=== PATIENT | female | born 1975 | race African-American/Black ===

== ENCOUNTER 2017-03-19 10:10 | Emergency (ER) | payer BC ==
[2017-03-19] MEDS ORDERED: ONDANSETRON 4 MG TAB.RAPDIS PO ONE (10:25)
[2017-03-19] MEDS ORDERED: NORMAL SALINE 1000 ML 1,000 ML IV ONE (10:25)
--- NOTE | 2017-03-19 10:26 | ER Document Report ---
ED Medical Screen (RME) - General Chief Complaint: Nausea/Vomiting Stated Complaint: NAUSEA/VOMITING Time Seen by Provider: 03/19/17 10:22 Notes: 41-year-old female with past medical history as recorded including congestive heart failure 1997 that was -induced. Patient has had no heart failure symptoms or medications since that time. Patient resents today with simply nausea without abdominal pain, fevers, dysuria, or diarrhea starting around 48 hours ago. She does states she feels a little "lightheaded". She denies any chest pain, leg swelling, or shortness of breath. On examination the patient has no tenderness to deep palpation of all 4 quadrants of the abdomen. has no flank pain or tenderness. Heart and lung exam is unremarkable. TRAVEL OUTSIDE OF THE [place] IN LAST 30 DAYS: No - Related Data Allergies/Adverse Reactions: acetaminophen [From Percocet] Allergy (Severe, Verified 03/19/17 10:11) RASH doxycycline [Doxycycline] Allergy (Severe, Verified 03/19/17 10:11) rash & vomiting oxycodone HCl [From Percocet] Allergy (Severe, Verified 03/19/17 10:11) RASH Past Medical History - Past Medical History Cardiac Medical History: Reports: Hx Congestive Heart Failure Denies: Hx Coronary Artery Disease, Hx Heart Attack, Hx Hypertension Pulmonary Medical History: Reports: Hx Asthma, Hx Bronchitis, Hx Pneumonia Denies: Hx COPD Neurological Medical History: Reports: Hx Migraine. Denies: Hx Cerebrovascular Accident, Hx Seizures Renal/ Medical History: Denies: Hx Peritoneal Dialysis Malignancy Medical History: Reports: Hx Breast Cancer - Right Musculoskeltal Medical History: Denies Hx Arthritis Past Surgical History: Reports: Hx Lumpectomy - R breast, Hx Tubal Ligation - Immunizations Hx Diphtheria, Pertussis, Tetanus Vaccination: Yes Physical Exam - Vital signs Vitals: Temp Pulse Resp BP Pulse Ox 97.4 F 50 L 20 98/62 L 100 03/19/17 10:16 03/19/17 10:03/19/17 10:03/19/17 10:03/19/17 10:16 Course - Vital Signs Vital signs: Temp Pulse Resp BP Pulse Ox 97.4 F 50 L 20 98/62 L 100 03/19/17 10:16 03/19/17 10:16 03/19/17 10:16 03/19/17 10:16 03/19/17 10:16
[2017-03-19 10:56] LABS: ABSOLUTE BASOPHILS # (AUTO) 0.1 10^3/uL (0.0-0.2); ABSOLUTE EOSINOPHILS # (AUTO) 0.1 10^3/uL (0.0-0.6); ABSOLUTE LYMPHOCYTES (AUTO) 2.5 10^3/uL (0.5-4.7); ABSOLUTE MONOCYTES (AUTO) 0.4 10^3/uL (0.1-1.4); ABSOLUTE NEUT (AUTO) 2.5 10^3/uL (1.7-8.2); BASOPHILS % (AUTO) 2.2 % (0-2); EOSINOPHILS % (AUTO) 1.9 % (0-6); HEMATOCRIT 37.9 % (36.0-47.0); HEMOGLOBIN 12.5 g/dL (12.0-15.5); HGB HCT DIFFERENCE -0.4; LYMPHOCYTES % (AUTO) 43.8 % (13-45); MEAN CORPUSCULAR HEMOGLOBIN 31.4 pg (27.0-33.4); MEAN CORPUSCULAR HGB CONC 33.1 g/dL (32.0-36.0); MEAN CORPUSCULAR VOLUME 95 fl (80-97); MONOCYTES % (AUTO) 7.2 % (3-13); RED BLOOD COUNT 3.98 10^6/uL (3.72-5.28); RED CELL DISTRIBUTION WIDTH 14.3 % (11.5-14.0); SEGMENTED NEUTROPHILS % (AUTO) 44.9 % (42-78); WHITE BLOOD COUNT 5.6 10^3/uL (4.0-10.5)
[2017-03-19] MEDS ORDERED: MECLIZINE HCL 25 MG TABLET PO ONE (11:00)
--- NOTE | 2017-03-19 11:00 | ER Document Report ---
ED General - General Chief Complaint: Nausea/Vomiting Stated Complaint: NAUSEA/VOMITING Time Seen by Provider: 03/19/17 10:22 Mode of Arrival: Ambulatory Information source: Patient Notes: 41-year-old female presents with complaints of dizziness when she stands. Patient denies any chest pain shortness breath difficult to breathing abdominal pain. Patient notes no other complaints TRAVEL OUTSIDE OF THE [place] IN LAST 30 DAYS: No - HPI Onset: Other - Three-day duration Onset/Duration: Persistent Quality of pain: No pain Severity: Mild Pain Level: Denies Associated symptoms: Other - Dizziness Exacerbated by: Supine, Walking Relieved by: Denies Similar symptoms previously: No Recently seen / treated by doctor: No - Related Data Allergies/Adverse Reactions: acetaminophen [From Percocet] Allergy (Severe, Verified 03/19/17 10:11) RASH doxycycline [Doxycycline] Allergy (Severe, Verified 03/19/17 10:11) rash & vomiting oxycodone HCl [From Percocet] Allergy (Severe, Verified 03/19/17 10:11) RASH Past Medical History - Social History Smoking Status: Never Smoker Cigarette use (# per day): No Chew tobacco use (# tins/day): No Smoking Education Provided: No Family History: Reviewed & Not Pertinent Patient has suicidal ideation: No Patient has homicidal ideation: No - Past Medical History Cardiac Medical History: Reports: Hx Congestive Heart Failure Denies: Hx Coronary Artery Disease, Hx Heart Attack, Hx Hypertension Pulmonary Medical History: Reports: Hx Asthma, Hx Bronchitis, Hx Pneumonia Denies: Hx COPD Neurological Medical History: Reports: Hx Migraine. Denies: Hx Cerebrovascular Accident, Hx Seizures Renal/ Medical History: Denies: Hx Peritoneal Dialysis Malignancy Medical History: Reports: Hx Breast Cancer - Right Musculoskeltal Medical History: Denies Hx Arthritis Past Surgical History: Reports: Hx Lumpectomy - R breast, Hx Tubal Ligation - Immunizations Hx Diphtheria, Pertussis, Tetanus Vaccination: Yes Review of Systems - Review of Systems Notes: PHYSICAL EXAMINATION: GENERAL: Well-appearing, well-nourished and in no acute distress. HEAD: Atraumatic, normocephalic. EYES: Pupils equal round and reactive to light, extraocular movements intact, conjunctiva are normal. ENT: Nares patent, oropharynx clear without exudates. Moist mucous membranes. NECK: Normal range of motion, supple without lymphadenopathy LUNGS: Breath sounds clear to auscultation bilaterally and equal. No wheezes rales or rhonchi. HEART: Regular rate and rhythm without murmurs ABDOMEN: Soft, nontender, nondistended abdomen. No guarding, no rebound. No masses appreciated. Female : deferred Musculoskeletal: Normal range of motion, no pitting or edema. No cyanosis. NEUROLOGICAL: Cranial nerves grossly intact. Normal speech, normal gait. Normal sensory, motor exams PSYCH: Normal mood, normal affect. SKIN: Warm, Dry, normal turgor, no rashes or lesions noted. Physical Exam - Vital signs Vitals: Temp Pulse Resp BP Pulse Ox 97.4 F 50 L 20 98/62 L 100 03/19/17 10:16 03/19/17 10:03/19/17 10:03/19/17 10:03/19/17 10:16 Course - Re-evaluation Re-evalutation: 03/19/17 11:18 Patient notes overall she looks well is in no distress lab work notes no acute abnormality, I believe dizziness is secondary to the heat that she has been working in and has not been hydrating well 03/19/17 13:08 Patient notes symptoms have resolved significantly after Antivert and IV fluids. I will discharge home as she is otherwise stable has no headache no neurological deficits After performing a Medical Screening Examination, I estimate there is LOW risk for ACUTE GLAUCOMA, TEMPORAL ARTERITIS, MENINGITIS, INCRANIAL HEMORRHAGE, or ISCHEMIC STROKE thus I consider the discharge disposition reasonable. I have reevaluated this patient multiple times and no significant life threatening changes are noted. The patient and I have discussed the diagnosis and risks, and we agree with discharging home with close follow-up with the understanding that symptoms and presentations can change. We also discussed returning to the Emergency Department immediately if new or worsening symptoms occur. We have discussed the symptoms which are most concerning (e.g., changing or worsening symptoms, new numbness or weakness, vomiting, fever) that necessitate immediate return. - Vital Signs Vital signs: Temp Pulse Resp BP Pulse Ox 97.4 F 50 L 20 98/62 L 100 03/19/17 10:16 03/19/17 10:16 03/19/17 10:16 03/19/17 10:16 03/19/17 10:16 - Laboratory Result Diagrams: 03/19/17 10:30 03/19/17 10:30 Laboratory results interpreted by me: 03/19/17 03/19/17 10:30 10:30 RDW 14.3 H Basophils % 2.2 H Glucose 118 H Discharge - Discharge Clinical Impression: Dizziness, Orthostatic hypotension Condition: Stable Disposition: HOME, SELF-CARE Instructions: Dizziness ([facility]) Prescriptions: Meclizine HCl [Antivert 25 mg Tablet] 25 mg PO TID PRN #21 tablet PRN Reason: Forms: Return to Work Referrals: EDSON VITALE MD [Primary Care Provider] - Follow up tomorrow
[2017-03-19 11:06] LABS: ALANINE AMINOTRANSFERASE 29 U/L (9-52); ALBUMIN 4.1 g/dL (3.5-5.0); ALKALINE PHOSPHATASE 50 U/L (38-126); ANION GAP 11 (5-19); ASPARTATE AMINO TRANSFERASE 28 U/L (14-36); BILIRUBIN,DIRECT 0.3 mg/dL (0.0-0.4); BILIRUBIN,TOTAL 0.6 mg/dL (0.2-1.3); BLOOD UREA NITROGEN 13 mg/dL (7-20); CALCIUM 9.9 mg/dL (8.4-10.2); CARBON DIOXIDE 26 mmol/L (22-30); CHLORIDE 102 mmol/L (98-107); CREATININE RESULT 0.73 mg/dL (0.52-1.25); GLUCOSE 118 mg/dL (75-110); POTASSIUM 4.6 mmol/L (3.6-5.0); SODIUM 138.5 mmol/L (137-145); TOTAL PROTEIN 7.7 g/dL (6.3-8.2)
[2017-03-19 11:24] LABS: APPEARANCE,URINE SLIGHTLY-CLOUDY; BILIRUBIN,URINE NEGATIVE (NEGATIVE); GLUCOSE, URINE NEGATIVE (NEGATIVE); KETONES,URINE NEGATIVE (NEGATIVE); LEUKOCYTE ESTERASE,URINE NEGATIVE (NEGATIVE); NITRITE,URINE NEGATIVE (NEGATIVE); PROTEIN,URINE NEGATIVE (NEGATIVE); URINE SPECIFIC GRAVITY 1.018; UROBILINOGEN,URINE NEGATIVE mg/dL (<2.0)
[2017-03-19 13:37] VITALS: BP 130/78
== END 2017-03-19 13:31 | disposition home or self-care (01) ==
LOC: ER 10:10
DX: I95.1 Orthostatic hypotension (principal); R42 Dizziness and giddiness; R11.2 Nausea with vomiting, unspecified; R06.02 Shortness of breath
CPT/HCPCS: 99284; 36415; 85025; 81025; 80053; 81001; S0119; J7030

== ENCOUNTER 2017-08-26 14:08 | Emergency (ER) | payer SELFPAY ==
--- NOTE | 2017-08-26 16:10 | ER Document Report ---
ED Medical Screen (RME) - General Chief Complaint: Abdominal Pain Stated Complaint: ABDOMINAL PAIN Time Seen by Provider: 08/26/17 16:09 Notes: Patient reports 1 day of right lower quadrant abdominal pain and some vaginal bleeding. She states she is a week late with her menstrual cycle. She states she has had her tubes tied 17 years ago but had a positive urine test yesterday. This was done at home. She denies any abdominal surgeries. TRAVEL OUTSIDE OF THE [place] IN LAST 30 DAYS: No - Related Data Allergies/Adverse Reactions: acetaminophen [From Percocet] Allergy (Severe, Verified 03/19/17 10:11) RASH doxycycline [Doxycycline] Allergy (Severe, Verified 03/19/17 10:11) rash & vomiting oxycodone HCl [From Percocet] Allergy (Severe, Verified 03/19/17 10:11) RASH Past Medical History - Social History Frequency of alcohol use: None Drug Abuse: None - Past Medical History Cardiac Medical History: Reports: Hx Congestive Heart Failure Denies: Hx Coronary Artery Disease, Hx Heart Attack, Hx Hypertension Pulmonary Medical History: Reports: Hx Asthma, Hx Bronchitis, Hx Pneumonia Denies: Hx COPD Neurological Medical History: Reports: Hx Migraine. Denies: Hx Cerebrovascular Accident, Hx Seizures Renal/ Medical History: Denies: Hx Peritoneal Dialysis Malignancy Medical History: Reports: Hx Breast Cancer - Right Musculoskeltal Medical History: Denies Hx Arthritis Past Surgical History: Reports: Hx Breast Surgery, Hx Gynecologic Surgery, Hx Lumpectomy - R breast, Hx Tubal Ligation - Immunizations Hx Diphtheria, Pertussis, Tetanus Vaccination: Yes Physical Exam - Vital signs Vitals: Temp Pulse Resp BP Pulse Ox 99.0 F 66 16 147/87 H 100 08/26/17 14:20 08/26/17 14:20 08/26/17 14:20 08/26/17 14:20 08/26/17 14:20 Course - Vital Signs Vital signs: Temp Pulse Resp BP Pulse Ox 99.0 F 66 16 147/87 H 100 08/26/17 14:20 08/26/17 14:20 08/26/17 14:20 08/26/17 14:20 08/26/17 14:20
--- NOTE | 2017-08-26 16:49 | ER Document Report ---
ED GI/ - General Mode of Arrival: Ambulatory Information source: Patient TRAVEL OUTSIDE OF THE [place] IN LAST 30 DAYS: No <GREG LEIVA - Last Filed: 08/26/17 16:55> <MENG HINES - Last Filed: 08/26/17 19:26> - General Chief Complaint: Abdominal Pain Stated Complaint: ABDOMINAL PAIN Time Seen by Provider: 08/26/17 16:09 Notes: Patient is a 41 year old female that presents to the emergency department today with complaints of abdominal pain which began a few hours ago. Patient states her LMP was 37 days ago and she is normally very regular. Patient states two days ago she developed nausea and vomiting so she took a test which was faintly positive. Patient had a tubal ligation 17 years ago. Patient states she has had vaginal spotting as well. (GREG LEIVA) - Related Data Allergies/Adverse Reactions: acetaminophen [From Percocet] Allergy (Severe, Verified 03/19/17 10:11) RASH doxycycline [Doxycycline] Allergy (Severe, Verified 03/19/17 10:11) rash & vomiting oxycodone HCl [From Percocet] Allergy (Severe, Verified 03/19/17 10:11) RASH Past Medical History - General Information source: Patient, [facility] Records - Social History Smoking Status: Former Smoker Cigarette use (# per day): No Frequency of alcohol use: None Drug Abuse: None Lives with: Family Family History: Reviewed & Not Pertinent Patient has suicidal ideation: No Patient has homicidal ideation: No - Past Medical History Cardiac Medical History: Reports: Hx Congestive Heart Failure Pulmonary Medical History: Reports: Hx Asthma, Hx Bronchitis, Hx Pneumonia Neurological Medical History: Reports: Hx Migraine Malignancy Medical History: Reports: Hx Breast Cancer - Right Past Surgical History: Reports: Hx Breast Surgery, Hx Gynecologic Surgery, Hx Lumpectomy - R breast, Hx Tubal Ligation - Immunizations Hx Diphtheria, Pertussis, Tetanus Vaccination: Yes <GREG LEIVA - Last Filed: 08/26/17 16:55> Review of Systems - Review of Systems Constitutional: No symptoms reported EENT: No symptoms reported Cardiovascular: No symptoms reported Respiratory: No symptoms reported Gastrointestinal: See HPI, Abdominal pain Genitourinary: No symptoms reported Female Genitourinary: See HPI, Last menstrual period - 37 days ago, - faint positive at home, Vaginal bleeding Musculoskeletal: No symptoms reported Skin: No symptoms reported Hematologic/Lymphatic: No symptoms reported Neurological/Psychological: No symptoms reported -: Yes All other systems reviewed and negative <GREG LEIVA - Last Filed: 08/26/17 16:55> Physical Exam <GREG LEIVA - Last Filed: 08/26/17 16:55> <MENG HINES - Last Filed: 08/26/17 19:26> - Vital signs Vitals: Temp Pulse Resp BP Pulse Ox 99.0 F 66 16 147/87 H 100 08/26/17 14:20 08/26/17 14:20 08/26/17 14:20 08/26/17 14:20 08/26/17 14:20 - Notes Notes: Physical Exam: General: Alert, appears well. HEENT: Normocephalic. Atraumatic. PERRL. Extraocular movements intact. Oropharynx clear. Neck: Supple. Non-tender. Respiratory: No respiratory distress. Clear and equal breath sounds bilaterally. Cardiovascular: Regular rate and rhythm. Abdominal: Obese, RLQ tenderness with palpation, no rebound or guarding. No distension. Normal Bowel Sounds. Back: Non-tender. No deformity or step off. Extremities: Moves all four extremities. Upper extremities: Normal inspection. Normal ROM. Lower extremities: Normal inspection. No edema. Normal ROM. Neurological: Normal cognition. AAOx4. Normal speech. Psychological: Normal affect. Normal Mood. Skin: Warm. Dry. Normal color. (GREG LEIVA) Course <GREG LEIVA - Last Filed: 08/26/17 16:55> - Laboratory Result Diagrams: 08/26/17 17:50 08/26/17 17:50 <MENG HINES - Last Filed: 08/26/17 19:26> - Re-evaluation Re-evalutation: 08/26/17 19:26 The patient states that oxycodone causes her to break out in hives. She has taken hydrocodone in the form of Vicodin in the past without problems. (MENG HINES) - Vital Signs Vital signs: Temp Pulse Resp BP Pulse Ox 98.3 F 66 24 H 134/84 H 100 08/26/17 18:00 08/26/17 14:20 08/26/17 18:01 08/26/17 18:00 08/26/17 18:01 Discharge <GREG LEIVA - Last Filed: 08/26/17 16:55> <MENG HINES - Last Filed: 08/26/17 19:26> - Discharge Clinical Impression: Pelvic pain, Amenorrhea Condition: Stable Disposition: HOME, SELF-CARE Additional Instructions: Pelvic Pain There are many causes of pain in the pelvic area. The cause could be the tubes, ovaries, uterus, intestines, appendix, pelvic muscles and connective tissue, or the urinary tract. The cause of your pelvic pain is not clear. However, it seems safe to treat you outside the hospital. If the pain sounds like a temporary problem, we sometimes wait to see if it goes away. Other patients may need additional tests, such as pelvic ultrasound or cultures. Conditions may change. Call us or come back for reexamination if any problems occur, such as: (1) Pain that becomes more severe, steady, or becomes concentrated in one specific area. Also, pain that is more severe with movement or coughing. (2) Vomiting that persists or becomes more frequent. (3) Blood in the vomitus, urine, or bowel movements. Blood in the stool may have a tarry or black appearance. (4) Shaking chills or fever greater than 100 degrees. (5) The abdomen becomes more distended or swollen. (6) Bowel movements cease. (7) Heavy vaginal bleeding. TAKE THE PAIN MEDICATION PRESCRIBED. REST. DRINK PLENTY OF FLUIDS. FOLLOW UP WITH [facility] IF NOT IMPROVING. RETURN TO THE EMERGENCY ROOM IF ANY NEW OR WORSENING SYMPTOMS. Prescriptions: Hydrocodone/Acetaminophen [[place] 5-325 mg Tablet] 1 tab PO Q4 PRN #15 tablet PRN Reason: Forms: Return to Work Referrals: [facility] [Provider Group] - Follow up as needed Scribe Attestation: 08/26/17 17:32 I personally performed the services described in the documentation, reviewed and edited the documentation which was dictated to the scribe in my presence, and it accurately records my words and actions. (MENG HINES) Scribe Documentation - Scribe Written by Scribe:: Georgina Griffith, 08/26/2017 2103 acting as scribe for :: Simon <GREG LEIVA - Last Filed: 08/26/17 16:55>
[2017-08-26 18:18] LABS: ABSOLUTE EOSINOPHILS # (AUTO) 0.1 10^3/uL (0.0-0.6); ABSOLUTE LYMPHOCYTES (AUTO) 2.3 10^3/uL (0.5-4.7); ABSOLUTE MONOCYTES (AUTO) 0.5 10^3/uL (0.1-1.4); ABSOLUTE NEUT (AUTO) 4.2 10^3/uL (1.7-8.2); BASOPHILS % (AUTO) 0.4 % (0-2); EOSINOPHILS % (AUTO) 1.1 % (0-6); HEMATOCRIT 39.4 % (36.0-47.0); HEMOGLOBIN 13.2 g/dL (12.0-15.5); HGB HCT DIFFERENCE 0.2; LYMPHOCYTES % (AUTO) 32.6 % (13-45); MEAN CORPUSCULAR HEMOGLOBIN 31.2 pg (27.0-33.4); MEAN CORPUSCULAR HGB CONC 33.5 g/dL (32.0-36.0); MEAN CORPUSCULAR VOLUME 93 fl (80-97); MONOCYTES % (AUTO) 7.5 % (3-13); RED BLOOD COUNT 4.24 10^6/uL (3.72-5.28); RED CELL DISTRIBUTION WIDTH 13.6 % (11.5-14.0); SEGMENTED NEUTROPHILS % (AUTO) 58.4 % (42-78); WHITE BLOOD COUNT 7.2 10^3/uL (4.0-10.5)
[2017-08-26] MEDS ORDERED: NORMAL SALINE 1000 ML 1,000 ML IV ONE (18:33)
[2017-08-26 18:38] LABS: ALANINE AMINOTRANSFERASE 35 U/L (9-52); ALBUMIN 4.3 g/dL (3.5-5.0); ALKALINE PHOSPHATASE 62 U/L (38-126); ANION GAP 13 (5-19); ASPARTATE AMINO TRANSFERASE 22 U/L (14-36); BILIRUBIN,DIRECT 0.4 mg/dL (0.0-0.4); BILIRUBIN,TOTAL 0.6 mg/dL (0.2-1.3); BLOOD UREA NITROGEN 10 mg/dL (7-20); CALCIUM 9.6 mg/dL (8.4-10.2); CARBON DIOXIDE 25 mmol/L (22-30); CHLORIDE 103 mmol/L (98-107); GLUCOSE 78 mg/dL (75-110); POTASSIUM 4.7 mmol/L (3.6-5.0); SODIUM 141.1 mmol/L (137-145); TOTAL PROTEIN 7.7 g/dL (6.3-8.2)
[2017-08-26] MEDS ORDERED: HYDROCODONE/ACETAMINOPHEN 5-325 MG 6 TAB/DSPK PO PRN (19:26)
[2017-08-26 20:11] VITALS: BP 120/88
== END 2017-08-26 20:11 | disposition home or self-care (01) ==
LOC: ER 14:08
DX: N91.2 Amenorrhea, unspecified (principal); R10.2 Pelvic and perineal pain; I50.9 Heart failure, unspecified; Z98.51 Tubal ligation status; Z88.6 Allergy status to analgesic agent; E66.9 Obesity, unspecified; Z68.38 Body mass index [BMI] 38.0-38.9, adult
CPT/HCPCS: 99284; 96360; 36415; 84702; 85025; 80053; J7030

== ENCOUNTER 2018-08-10 13:50 | Emergency (ER) | payer BC ==
--- NOTE | 2018-08-10 14:28 | ER Document Report ---
ED Medical Screen (RME) - General Chief Complaint: Rectal Bleeding Stated Complaint: BLOOD IN STOOL Time Seen by Provider: 08/10/18 14:26 Mode of Arrival: Ambulatory Information source: Patient Notes: 42-year-old female presents with 1 week of lower abdominal cramping and 1 day of bright red blood per rectum with bowel movements. I have greeted and performed a rapid initial assessment of this patient. A comprehensive ED assessment and evaluation of the patient, analysis of test results and completion of medical decision making process we will be contacted by additional ED providers. PHYSICAL EXAMINATION: Vital signs reviewed-afebrile, normotensive GENERAL: Well-appearing, well-nourished and in no acute distress. LUNGS: No respiratory distress Musculoskeletal: Normal range of motion NEUROLOGICAL: Normal speech, normal gait. PSYCH: Normal mood, normal affect. SKIN: Warm, Dry, normal turgor, no rashes or lesions noted. TRAVEL OUTSIDE OF THE [place] IN LAST 30 DAYS: No - HPI Onset: Last week Onset/Duration: Intermittent, Worse Quality of pain: Cramping Severity: Moderate Associated Symptoms: Abdominal pain, Diarrhea. denies: Fever, Nausea Exacerbated by: Denies Relieved by: Denies Similar symptoms previously: No Recently seen / treated by doctor: No - Related Data Smoking: Non-smoker Frequency of alcohol use: None Drug Abuse: None Allergies/Adverse Reactions: acetaminophen [From Percocet] Allergy (Severe, Verified 03/19/17 10:11) RASH doxycycline [Doxycycline] Allergy (Severe, Verified 03/19/17 10:11) rash & vomiting oxycodone HCl [From Percocet] Allergy (Severe, Verified 03/19/17 10:11) RASH Past Medical History - Past Medical History Cardiac Medical History: Reports: Hx Congestive Heart Failure Denies: Hx Coronary Artery Disease, Hx Heart Attack, Hx Hypertension Pulmonary Medical History: Reports: Hx Asthma, Hx Bronchitis, Hx Pneumonia Denies: Hx COPD Neurological Medical History: Reports: Hx Migraine. Denies: Hx Cerebrovascular Accident, Hx Seizures Renal/ Medical History: Denies: Hx Peritoneal Dialysis Malignancy Medical History: Reports: Hx Breast Cancer - Right Musculoskeltal Medical History: Denies Hx Arthritis Past Surgical History: Reports: Hx Breast Surgery, Hx Gynecologic Surgery, Hx Lumpectomy - R breast, Hx Tubal Ligation - Immunizations Hx Diphtheria, Pertussis, Tetanus Vaccination: Yes Physical Exam - Vital signs Vitals: Temp Pulse Resp BP Pulse Ox 98.8 F 65 14 131/71 H 98 08/10/18 13:59 08/10/18 13:59 08/10/18 13:59 08/10/18 13:59 08/10/18 13:59 Course - Vital Signs Vital signs: Temp Pulse Resp BP Pulse Ox 98.8 F 65 14 131/71 H 98 08/10/18 13:59 08/10/18 13:59 08/10/18 13:59 08/10/18 13:59 08/10/18 13:59
[2018-08-10 14:58] LABS: ABSOLUTE EOSINOPHILS # (AUTO) 0.2 10^3/uL (0.0-0.6); ABSOLUTE LYMPHOCYTES (AUTO) 2.2 10^3/uL (0.5-4.7); ABSOLUTE MONOCYTES (AUTO) 0.5 10^3/uL (0.1-1.4); ABSOLUTE NEUT (AUTO) 3.7 10^3/uL (1.7-8.2); BASOPHILS % (AUTO) 0.6 % (0-2); EOSINOPHILS % (AUTO) 2.7 % (0-6); HEMATOCRIT 39.4 % (36.0-47.0); HEMOGLOBIN 13.3 g/dL (12.0-15.5); LYMPHOCYTES % (AUTO) 33.1 % (13-45); MEAN CORPUSCULAR HEMOGLOBIN 30.8 pg (27.0-33.4); MEAN CORPUSCULAR HGB CONC 33.8 g/dL (32.0-36.0); MEAN CORPUSCULAR VOLUME 91 fl (80-97); PLATELET COUNT 312 10^3/uL (150-450); RED BLOOD COUNT 4.34 10^6/uL (3.72-5.28); RED CELL DISTRIBUTION WIDTH 15.5 % (11.5-14.0); SEGMENTED NEUTROPHILS % (AUTO) 55.6 % (42-78); TOTAL CELLS COUNTED % (AUTO) 100 %; WHITE BLOOD COUNT 6.7 10^3/uL (4.0-10.5)
[2018-08-10 15:12] LABS: APPEARANCE,URINE CLEAR; BILIRUBIN,URINE NEGATIVE (NEGATIVE); COLOR,URINE YELLOW; GLUCOSE, URINE NEGATIVE (NEGATIVE); KETONES,URINE NEGATIVE (NEGATIVE); LEUKOCYTE ESTERASE,URINE NEGATIVE (NEGATIVE); NITRITE,URINE NEGATIVE (NEGATIVE); PROTEIN,URINE NEGATIVE (NEGATIVE); URINE SPECIFIC GRAVITY 1.018; UROBILINOGEN,URINE NEGATIVE mg/dL (<2.0)
[2018-08-10 15:31] LABS: ALANINE AMINOTRANSFERASE 23 U/L (9-52); ALBUMIN 4.4 g/dL (3.5-5.0); ALKALINE PHOSPHATASE 52 U/L (38-126); ANION GAP 10 (5-19); ASPARTATE AMINO TRANSFERASE 28 U/L (14-36); BILIRUBIN,DIRECT 0.5 mg/dL (0.0-0.4); BILIRUBIN,TOTAL 0.5 mg/dL (0.2-1.3); BLOOD UREA NITROGEN 15 mg/dL (7-20); CALCIUM 9.6 mg/dL (8.4-10.2); CARBON DIOXIDE 25 mmol/L (22-30); CHLORIDE 104 mmol/L (98-107); GLUCOSE 99 mg/dL (75-110); LIPASE 168.2 U/L (23-300); POTASSIUM 5.1 mmol/L (3.6-5.0); TOTAL PROTEIN 8.1 g/dL (6.3-8.2)
--- NOTE | 2018-08-10 16:51 | ER Document Report ---
ED General - General Chief Complaint: Rectal Bleeding Stated Complaint: BLOOD IN STOOL Time Seen by Provider: 08/10/18 14:26 Mode of Arrival: Ambulatory TRAVEL OUTSIDE OF THE [place] IN LAST 30 DAYS: No - HPI Notes: Patient is a 42-year-old female with a history of breast cancer in remission, tubal ligation, congestive heart failure who presents to the ED complaining of noticing red blood in her stool x2 today primarily with wiping. Patient states that she did have lower abdominal cramping intermittently over the last week without any radiation of her pain. Patient states that the pain is not sharp. She has not had any vaginal discharge, odor, or bleeding. She has been eating and drinking without any difficulties. She is urinating normally. Patient states that her stools are soft and she has not experienced any pain or discomfort. Denies any headache, fever, URI, sore throat, chest pain, palpitations, syncope, cough, shortness of breath, wheeze, dyspnea, nausea/ vomiting/diarrhea, urinary retention, dysuria, hematuria, loss of control of bowel or bladder, numbness/tingling, saddle anesthesia, muscle paralysis/ weakness, or rash. Pt has not concern with STD/STI and does not want to be tested. - Related Data Allergies/Adverse Reactions: acetaminophen [From Percocet] Allergy (Severe, Verified 03/19/17 10:11) RASH doxycycline [Doxycycline] Allergy (Severe, Verified 03/19/17 10:11) rash & vomiting oxycodone HCl [From Percocet] Allergy (Severe, Verified 03/19/17 10:11) RASH Past Medical History - General Information source: Patient - Social History Smoking Status: Unknown if Ever Smoked Frequency of alcohol use: None Drug Abuse: None Family History: Reviewed & Not Pertinent Patient has suicidal ideation: No Patient has homicidal ideation: No - Past Medical History Cardiac Medical History: Reports: Hx Congestive Heart Failure Denies: Hx Coronary Artery Disease, Hx Heart Attack, Hx Hypertension Pulmonary Medical History: Reports: Hx Asthma, Hx Bronchitis, Hx Pneumonia Denies: Hx COPD Neurological Medical History: Reports: Hx Migraine. Denies: Hx Cerebrovascular Accident, Hx Seizures Renal/ Medical History: Denies: Hx Peritoneal Dialysis Malignancy Medical History: Reports: Hx Breast Cancer - Right Musculoskeletal Medical History: Denies Hx Arthritis Past Surgical History: Reports: Hx Breast Surgery, Hx Gynecologic Surgery, Hx Lumpectomy - R breast, Hx Tubal Ligation - Immunizations Hx Diphtheria, Pertussis, Tetanus Vaccination: Yes Review of Systems - Review of Systems -: Yes All other systems reviewed and negative Physical Exam - Vital signs Vitals: Temp Pulse Resp BP Pulse Ox 98.8 F 65 14 131/71 H 98 08/10/18 13:59 08/10/18 13:59 08/10/18 13:59 08/10/18 13:59 08/10/18 13:59 - Notes Notes: PHYSICAL EXAMINATION: GENERAL: Well-appearing, well-nourished and in no acute distress. HEAD: Atraumatic, normocephalic. EYES: Pupils equal round and reactive to light, extraocular movements intact, sclera anicteric, conjunctiva are normal. ENT: Nares patent and without discharge. oropharynx clear without exudates. No tonsilar hypertrophy or erythema. Moist mucous membranes. NECK: Normal range of motion, supple without lymphadenopathy LUNGS: Breath sounds clear to auscultation bilaterally and equal. No wheezes rales or rhonchi. HEART: Regular rate and rhythm without murmurs, rubs, gallops. ABDOMEN: Soft, nontender, nondistended abdomen. No guarding, no rebound. No masses appreciated. Normal bowel sounds present. No CVA tenderness bilaterally. Rectal: brown stool noted. No black stool, melena, or obvious brbpr ( accompanied by female nurse Usman). : pt declined Musculoskeletal: FROM to passive/active. Strength 5+/5. Extremities: No cyanosis, clubbing, or edema b/l. Peripheral pulses 2+. Capillary refill less than 3 seconds. NEUROLOGICAL: Normal speech, normal gait. PSYCH: Normal mood, normal affect. SKIN: Warm, Dry, normal turgor, no rashes or lesions noted. Course - Re-evaluation Re-evalutation: 08/10/18 17:33 Patient is an afebrile, well-hydrated, 42-year-old female who presents to the ED with concern of possible rectal bleeding and intermittent abdominal cramping unspecified. Vitals are acceptable without any significant tachycardia, tachypnea, or hypoxia. PE is otherwise unremarkable. Patient is nontoxic- appearing and is tolerating p.o. without any difficulties. CBC, CMP, lipase, urinalysis, hCG, guaiac were all unremarkable for acute pathology. No further labs or imaging warranted at this time. Low suspicion/risk for acute appendicitis, bowel obstruction, acute cholecystitis, acute cholangitis, perforated diverticulitis, incarcerated hernia, pancreatitis, perforated ulcer, peritonitis, sepsis, pelvic inflammatory disease, ectopic , tubo- ovarian abscess, ovarian torsion, or other systemic emergent condition at this time. Patient is aware that her condition can change from initial presentation and she needs to monitor symptoms closely and seek medical attention if any acute changes. Conservative measures otherwise for symptoms. Recheck with your PCM in 2-3 days. Consider consult with a rippler for possible colonoscopy. Return to the ED with any worsening/concerning symptoms otherwise as reviewed in discharge. Patient is in agreement. - Vital Signs Vital signs: Temp Pulse Resp BP Pulse Ox 98.8 F 65 14 131/71 H 98 08/10/18 13:59 08/10/18 13:59 08/10/18 13:59 08/10/18 13:59 08/10/18 13:59 - Laboratory Result Diagrams: 08/10/18 14:28 08/10/18 14:28 Laboratory results interpreted by me: 08/10/18 08/10/18 08/10/18 14:28 14:28 14:28 RDW 15.5 H Potassium 5.1 H Direct Bilirubin 0.5 H Urine Blood SMALL H Discharge - Discharge Clinical Impression: Lower abdominal pain, unspecified Condition: Stable Disposition: HOME, SELF-CARE Instructions: Abdominal Pain ([facility]) Additional Instructions: Maintain adequate fluid and food intake healthy diet tylenol if needed Monitor for any worsening symptoms Make sure you are staying hydrated enough to urinate and have normal BM's Recheck with your PCM in 2-3 days Consider consult with Gastroenterology for ongoing/worsening symptoms Return to the ED with any worsening symptoms and/or development of fever, headache, chest pain, palpitations, syncope, shortness of breath, trouble breathing, abdominal pain, n/v/d, blood in stool/urine, weakness, or other worsening symptoms that are concerning to you. Forms: Elevated Blood Pressure Referrals: CHARLENE JAMES PA-C [Primary Care Provider] - 08/13/18 DANNY OLIVER MD [ACTIVE STAFF] - Follow up as needed ALESSANDRO LAZARO MD [ACTIVE STAFF] - Follow up as needed
[2018-08-10 18:29] VITALS: BP 132/75
== END 2018-08-10 18:25 | disposition home or self-care (01) ==
LOC: ER 13:50
DX: R10.30 Lower abdominal pain, unspecified (principal); K62.5 Hemorrhage of anus and rectum; I50.9 Heart failure, unspecified; Z98.51 Tubal ligation status; Z88.6 Allergy status to analgesic agent; Z85.3 Personal history of malignant neoplasm of breast
CPT/HCPCS: 36415; 80053; 81001; 81025; 82272; 83690; 85025; 99283

== ENCOUNTER 2018-12-11 07:20 | Emergency (ER) | payer BC ==
[2018-12-11] MEDS ORDERED: ACETAMINOPHEN 325 MG TABLET PO ONE (08:07)
[2018-12-11] MEDS ORDERED: PREDNISONE 20 MG TABLET PO ONE (08:20)
[2018-12-11] MEDS ORDERED: BENZONATATE 100 MG CAPSULE PO ONE (08:21)
--- NOTE | 2018-12-11 08:56 | RADIOLOGY REPORT (SQ) ---
EXAM DESCRIPTION: CHEST SINGLE VIEW COMPLETED DATE/TIME: 12/11/2018 8:30 am REASON FOR STUDY: cough COMPARISON: 07/13/2015 EXAM PARAMETERS: NUMBER OF VIEWS: One view. TECHNIQUE: Single frontal radiographic view of the chest acquired. RADIATION DOSE: NA LIMITATIONS: None. FINDINGS: LUNGS AND PLEURA: No opacities, masses or pneumothorax. No pleural effusion. MEDIASTINUM AND HILAR STRUCTURES: No masses. Contour normal. HEART AND VASCULAR STRUCTURES: Heart normal in size. Normal vasculature. BONES: No acute findings. HARDWARE: Left-sided Port-A-Cath, stable finding. OTHER: Surgical metallic clips right axilla, stable findings. IMPRESSION: 1. No significant interval changes since the previous examination dated 07/13/2015. No a cute findings. TECHNICAL DOCUMENTATION: JOB ID: [id number] [employer]- All Rights Reserved Reading location - IP/workstation name: [email or web address]
[2018-12-11 09:20] LABS: A TYPE INFLUENZA AG POSITIVE (NEGATIVE); B INFLUENZA AG NEGATIVE (NEGATIVE)
[2018-12-11 09:28] VITALS: BP 95/53
--- NOTE | 2018-12-11 09:32 | ER Document Report ---
HPI - HPI Time Seen by Provider: 12/11/18 08:08 Pain Level: 4 Notes: Patient is a 42-year-old female who presents the emergency department with 5-day history of cough and congestion. Patient reports she started developing low- grade fevers at home over the last 2 days with body aches. Patient denies any chest pain, shortness of breath, nausea, vomiting or diarrhea. Patient reports she has not gotten her flu shot. Patient reports one of her family members was positive for flu last week. - CONSTITUTIONAL Constitutional: REPORTS: Fever - x 2 days, Chills - EENT EENT: REPORTS: Sore Throat. DENIES: Ear Pain, Eye problems - NEURO Neurology: DENIES: Headache, Weakness, Vision blurred, Dizzinesss / Vertigo - CARDIOVASCULAR Cardiovascular: REPORTS: Chest pain - with deep breathing - RESPIRATORY Respiratory: REPORTS: Coughing. DENIES: Trouble Breathing - GASTROINTESTINAL Gastrointestinal: DENIES: Abdominal Pain, Black / Bloody Stools - URINARY Urinary: DENIES: Dysuria, Urgency, Frequency - REPRODUCTIVE Reproductive: DENIES: : - MUSCULOSKELETAL Musculoskeletal: REPORTS: Extremity pain - generalized Past Medical History - General Information source: Patient - Social History Smoking Status: Never Smoker Chew tobacco use (# tins/day): No Frequency of alcohol use: None Drug Abuse: None Family History: Reviewed & Not Pertinent Patient has suicidal ideation: No Patient has homicidal ideation: No - Past Medical History Cardiac Medical History: Reports: Hx Congestive Heart Failure - resolved after childbirth Denies: Hx Coronary Artery Disease, Hx Heart Attack, Hx Hypertension Pulmonary Medical History: Reports: Hx Asthma, Hx Bronchitis, Hx Pneumonia Denies: Hx COPD Neurological Medical History: Reports: Hx Migraine. Denies: Hx Cerebrovascular Accident, Hx Seizures Renal/ Medical History: Denies: Hx Peritoneal Dialysis Malignancy Medical History: Reports: Hx Breast Cancer - Right Musculoskeletal Medical History: Denies Hx Arthritis Past Surgical History: Reports: Hx Breast Surgery - lumpectomy, Hx Gynecologic Surgery, Hx Lumpectomy - R breast, Hx Tubal Ligation - Immunizations Hx Diphtheria, Pertussis, Tetanus Vaccination: Yes Vertical Provider Document - CONSTITUTIONAL Notes: GENERAL: Alert, oriented. No distress. HEAD: Normocephalic, atraumatic. EYES: Pupils equal, round, and reactive to light. Extraocular movements intact. ENT: Oral mucosa moist, tongue midline. Oropharynx unremarkable, uvula normal, airway patent. Nares patent with mild nasal congestion, septum unremarkable, TMs normal, ear canals are normal. NECK: Trachea midline. No lymphadenopathy. LUNGS: Clear to auscultation bilaterally, no wheezes, rales, or rhonchi. No respiratory distress. Mild congested cough. HEART: Regular rate and rhythm. No murmur. Normal distal pulses and cap refill. ABDOMEN: Soft, non-tender. Non-distended. Bowel sounds present in all 4 quadrants. GENITOURINARY: Normal external genital exam, normal groin exam. EXTREMITIES: Moves all 4 extremities spontaneously. No edema. No cyanosis. BACK: no cervical, thoracic, lumbar midline tenderness. No signs of trauma. NEUROLOGICAL: Alert, interactive, age appropriate verbal. SKIN: Warm, dry, normal turgor. No rashes or lesions noted. - INFECTION CONTROL TRAVEL OUTSIDE OF THE [place] IN LAST 30 DAYS: No Course - Re-evaluation Re-evalutation: 12/11/18 09:35 Patient reports improvement of her symptoms after administration of acetaminophen, Tessalon Perles and prednisone. Chest x-ray is negative for any acute findings to include infiltrates or pneumothorax. Influenza A+. Discussed all test results with patient. Patient given ED return precautions. Patient discharged home in stable condition. - Vital Signs Vital signs: Temp Pulse Resp BP Pulse Ox 99.2 F 77 18 95/53 L 98 12/11/18 09:28 12/11/18 09:19 12/11/18 09:19 12/11/18 09:19 12/11/18 09:19 Discharge - Discharge Clinical Impression: Influenza A Condition: Stable Disposition: HOME, SELF-CARE Instructions: Influenza ([facility]) [id number] Additional Instructions: You have tested positive today for influenza A. I have enclosed a educational sheet regarding influenza. This is a virus and is not treated by antibiotics. I did prescribe you some Tessalon Perles to help with your cough. Take Tylenol or ibuprofen for fever and body aches. Try to stay hydrated. Return to the emergency department if you develop persistent vomiting, or unable to keep any fluids down, your fevers do not respond at all to Tylenol or ibuprofen or you develop worsening symptoms such as chest pain or shortness of breath. Prescriptions: Benzonatate [Tessalon Perles 100 mg Capsule] 100 mg PO Q8HP PRN #40 capsule PRN Reason: Referrals: JOVANA MELENDEZ MD [Primary Care Provider] - Follow up as needed
== END 2018-12-11 09:47 | disposition home or self-care (01) ==
LOC: ER 07:20
DX: J11.1 Influenza due to unidentified influenza virus with other respiratory manifestations (principal); R50.9 Fever, unspecified; R07.9 Chest pain, unspecified; Z85.3 Personal history of malignant neoplasm of breast; Z98.51 Tubal ligation status
CPT/HCPCS: 99283; 87804; 71045; J7512

== ENCOUNTER 2020-01-14 10:53 | Emergency (ER) | payer SELFPAY ==
--- NOTE | 2020-01-14 12:10 | ER Document Report ---
ED Medical Screen (RME) - General Chief Complaint: Foot Pain Stated Complaint: FOOT PAIN/KNEE PAIN Time Seen by Provider: 01/14/20 12:03 Primary Care Provider: JOVANA MELENDEZ MD [Primary Care Provider] - Follow up as needed Information source: Patient Notes: This is a 44-year-old female who presented to the emergency room today stating that she has pain to her she also states that she has a bump like a hard knot in her belly no nausea no vomiting. TRAVEL OUTSIDE OF THE [place] IN LAST 30 DAYS: No - HPI Patient complains to provider of: Pain to right foot superior Onset: Just prior to arrival - Related Data Allergies/Adverse Reactions: acetaminophen [From Percocet] Allergy (Severe, Verified 12/11/18 07:21) RASH doxycycline [Doxycycline] Allergy (Severe, Verified 12/11/18 07:21) rash & vomiting oxycodone HCl [From Percocet] Allergy (Severe, Verified 12/11/18 07:21) RASH Home Medications: Claratin Past Medical History - Past Medical History Cardiac Medical History: Reports: Hx Congestive Heart Failure Denies: Hx Coronary Artery Disease, Hx Heart Attack, Hx Hypertension Pulmonary Medical History: Reports: Hx Asthma - childhood, Hx Bronchitis, Hx Pneumonia Denies: Hx COPD Neurological Medical History: Reports: Hx Migraine. Denies: Hx Cerebrovascular Accident, Hx Seizures Renal/ Medical History: Denies: Hx Peritoneal Dialysis Malignancy Medical History: Reports: Hx Breast Cancer - Right Musculoskeltal Medical History: Denies Hx Arthritis Past Surgical History: Reports: Hx Breast Surgery - lumpectomy, Hx Gynecologic Surgery, Hx Lumpectomy - R breast, Hx Tubal Ligation - Immunizations Hx Diphtheria, Pertussis, Tetanus Vaccination: Yes Physical Exam - Vital signs Vitals: Temp Pulse Resp BP Pulse Ox 98.7 F 60 16 143/87 H 98 01/14/20 11:01/14/20 11:01/14/20 11:01/14/20 11:01/14/20 11:01 - Extremities Foot: Tender. No: Edema, Navicular tenderness, Tender 5th metatarsal Course - Vital Signs Vital signs: Temp Pulse Resp BP Pulse Ox 98.7 F 60 16 143/87 H 98 01/14/20 11:01 01/14/20 11:01 01/14/20 11:01 01/14/20 11:01 01/14/20 11:01 Doctor's Discharge - Discharge Referrals: JOVANA MELENDEZ MD [Primary Care Provider] - Follow up as needed
--- NOTE | 2020-01-14 12:33 | RADIOLOGY REPORT (SQ) ---
EXAM DESCRIPTION: FOOT RIGHT COMPLETE COMPLETED DATE/TIME: 01/14/2020 12:24 pm REASON FOR STUDY: pain COMPARISON: None. NUMBER OF VIEWS: Three views. TECHNIQUE: AP, lateral and oblique radiographic images acquired of the right foot. LIMITATIONS: None. FINDINGS: MINERALIZATION: Normal. BONES: No acute fracture or dislocation. No worrisome bone lesions. JOINTS: No effusions. SOFT TISSUES: No soft tissue swelling. No foreign body. OTHER: No other significant finding. IMPRESSION: NEGATIVE STUDY OF THE RIGHT FOOT. NO RADIOGRAPHIC EVIDENCE OF ACUTE INJURY. TECHNICAL DOCUMENTATION: JOB ID: [id number] 2010 [employer]- All Rights Reserved Reading location - IP/workstation name: [email or web address]
--- NOTE | 2020-01-14 13:50 | ER Document Report ---
ED General - General Chief Complaint: Foot Pain Stated Complaint: FOOT PAIN/KNEE PAIN Time Seen by Provider: 01/14/20 12:03 Primary Care Provider: JOVANA MELENDEZ MD [NO LOCAL MD] - Follow up as needed Information source: Patient Notes: Patient is a 44-year-old female presenting to the emergency department chief complaint of right foot pain. Patient states it is been ongoing for a couple of weeks but worse the past 2 to 3 days. Patient states that she normally walks 3 to 4 miles a day for exercise. She denies any overexertion no slip or falls or trauma. Patient denies any other complaints at this time. TRAVEL OUTSIDE OF THE [place] IN LAST 30 DAYS: No - HPI Onset: Last week Onset/Duration: Gradual, Persistent, Worse Quality of pain: Throbbing Severity: Moderate Pain Level: 2 Associated symptoms: None Exacerbated by: Standing, Movement, Walking Relieved by: Denies Similar symptoms previously: Yes Recently seen / treated by doctor: No - Related Data Allergies/Adverse Reactions: acetaminophen [From Percocet] Allergy (Severe, Verified 12/11/18 07:21) RASH doxycycline [Doxycycline] Allergy (Severe, Verified 12/11/18 07:21) rash & vomiting oxycodone HCl [From Percocet] Allergy (Severe, Verified 12/11/18 07:21) RASH Home Medications: Claratin Past Medical History - General Information source: Patient - Social History Smoking Status: Never Smoker Chew tobacco use (# tins/day): No Frequency of alcohol use: None Drug Abuse: None Lives with: Family Family History: Reviewed & Not Pertinent Patient has suicidal ideation: No Patient has homicidal ideation: No - Past Medical History Cardiac Medical History: Reports: Hx Congestive Heart Failure Denies: Hx Coronary Artery Disease, Hx Heart Attack, Hx Hypertension Pulmonary Medical History: Reports: Hx Asthma - childhood, Hx Bronchitis, Hx Pneumonia Denies: Hx COPD Neurological Medical History: Reports: Hx Migraine. Denies: Hx Cerebrovascular Accident, Hx Seizures Renal/ Medical History: Denies: Hx Peritoneal Dialysis Malignancy Medical History: Reports: Hx Breast Cancer - Right Musculoskeletal Medical History: Denies Hx Arthritis Past Surgical History: Reports: Hx Breast Surgery - lumpectomy, Hx Gynecologic Surgery, Hx Lumpectomy - R breast, Hx Tubal Ligation - Immunizations Hx Diphtheria, Pertussis, Tetanus Vaccination: Yes Review of Systems - Review of Systems Notes: REVIEW OF SYSTEMS: CONSTITUTIONAL : Denies fever, chills, or sweats. Denies recent illness. EENT: Denies eye, ear, throat, or mouth pain or symptoms. Denies nasal or sinus congestion. CARDIOVASCULAR: Denies chest pain. RESPIRATORY: Denies cough, cold, or chest congestion. Denies shortness of breath, difficulty breathing, or wheezing. GASTROINTESTINAL: Denies abdominal pain. Denies nausea, vomiting, or diarrhea. Denies constipation. GENITOURINARY: Denies difficulty urinating, painful urination, burning, frequency, or blood in urine. MUSCULOSKELETAL: Per HPI SKIN: Denies rash or skin lesions. HEMATOLOGIC : Denies easy bruising or bleeding. NEUROLOGICAL: Denies altered mental status or loss of consciousness. Denies headache. Denies weakness or paralysis or loss of use of either side. Denies problems with gait or speech. Denies sensory or motor loss. PSYCHIATRIC: Denies suicidal or homicidal ideations 10 Systems are negative unless otherwise specified above Physical Exam - Vital signs Vitals: Temp Pulse Resp BP Pulse Ox 98.7 F 60 16 143/87 H 98 01/14/20 11:01 01/14/20 11:01 01/14/20 11:01 01/14/20 11:01/14/20 11:01 - Notes Notes: PHYSICAL EXAMINATION: GENERAL: Well-appearing, well-nourished and in no acute distress. HEAD: Atraumatic, normocephalic. EYES: Pupils equal round and reactive to light, extraocular movements intact, sclera anicteric, conjunctiva are normal. ENT: nares patent, oropharynx clear without exudates. Moist mucous membranes. NECK: Normal range of motion, supple without lymphadenopathy, no appreciable JVD LUNGS: Lungs clear to auscultation bilaterally and equal. No wheezes rales or rhonchi. HEART: Regular rate and rhythm without murmurs ABDOMEN: Soft, nontender, normal bowel sounds. No guarding, no rebound. No masses appreciated. EXTREMITIES: Active full range of motion, no pitting or edema. No cyanosis. 2+ pulses x4 there is tenderness to the dorsum of the right foot however there is no pain to palpation or manipulation of the great toe. There is no erythema no ecchymosis. NEUROLOGICAL: No focal neurological deficits. Moves all extremities spontaneously and on command. SKIN: Warm, Dry, and intact. Normal turgor, no rashes or lesions noted. Course - Re-evaluation Re-evalutation: 01/14/20 17:49 Radiologic results demonstrate no significant finding. We did discuss rest ice and elevation of the extremity and recommend following up with orthopedics or podiatry if things continue to worsen. Patient is also advised to decrease the amount of activity for the next several days and then gradually advance back to what as tolerated. - Vital Signs Vital signs: Temp Pulse Resp BP Pulse Ox 98.7 F 66 16 136/82 H 99 01/14/20 15:15 01/14/20 15:15 01/14/20 15:15 01/14/20 15:15 01/14/20 15:15 - Diagnostic Test Radiology reviewed: Reports reviewed Discharge - Discharge Clinical Impression: Foot contusion Qualifiers: Encounter type: initial encounter Laterality: right Qualified Code(s): S90.31XA - Contusion of right foot, initial encounter Condition: Stable Disposition: HOME, SELF-CARE Additional Instructions: Contusion Your injury has resulted in a contusion -- a crushing of the deep tissues. No injury to important structures was detected during the physician's exam. Contusions vary in the amount of pain they cause, and in the length of time req uired for healing. Typically, the area will become bruised, and will remain painful to touch for two or three weeks. However, most patients are back to working and playing within a few days. After the initial period of rest and cold-packs, your symptoms (together with the doctor's recommendations) will determine how rapidly you can get back to full activity. Usually this means "do what feels okay, but don't do things that hurt." If re-examination was recommended, it's important to follow up as instructed. Call the doctor or return any time if pain increases, if swelling becomes severe, if you develop numbness or weakness in an injured extremity, or if any other alarming symptoms occur. Referrals: JOVANA MELENDEZ MD [NO LOCAL MD] - Follow up as needed
[2020-01-14 15:18] VITALS: BP 136/82
== END 2020-01-14 15:18 | disposition home or self-care (01) ==
LOC: ER 10:53
DX: S90.31XA Contusion of right foot, initial encounter (principal); X58.XXXA Exposure to other specified factors, initial encounter; Z85.3 Personal history of malignant neoplasm of breast; Z88.8 Allergy status to other drugs, medicaments and biological substances; Z88.1 Allergy status to other antibiotic agents; Z88.6 Allergy status to analgesic agent; Z88.5 Allergy status to narcotic agent
CPT/HCPCS: 99283

== ENCOUNTER 2020-01-25 08:07 | Emergency (ER) | payer SELFPAY ==
[2020-01-25 08:13] VITALS: BP 146/85
[2020-01-25] MEDS ORDERED: KETOROLAC TROMETHAMINE 60 MG/2 ML SDV IM ONE (09:34)
--- NOTE | 2020-01-25 10:33 | RADIOLOGY REPORT (SQ) ---
EXAM DESCRIPTION: L SPINE WHOLE COMPLETED DATE/TIME: 01/25/2020 10:10 am REASON FOR STUDY: back pain/ distant breast cancer COMPARISON: None. NUMBER OF VIEWS: Five views including obliques. TECHNIQUE: AP, lateral, oblique, and sacral radiographic images acquired of the lumbar spine. LIMITATIONS: None. FINDINGS: MINERALIZATION: Normal. SEGMENTATION: Transitional vertebra. ALIGNMENT: Normal. VERTEBRAE: Maintained height. No fracture or worrisome bone lesion. DISCS: Disc space narrowing and osteophyte formation L5-S1. POSTERIOR ELEMENTS: Pedicles and facets are intact. No pars defect or posterior arch defects. HARDWARE: None in the spine. PARASPINAL SOFT TISSUES: Normal. PELVIS: Mild sclerosis left SI joint. No erosions. OTHER: No other significant finding. IMPRESSION: Spondylosis L5-S1. TECHNICAL DOCUMENTATION: JOB ID: [id number] 2010 [employer]- All Rights Reserved Reading location - IP/workstation name: [email or web address]
--- NOTE | 2020-01-25 10:42 | ER Document Report ---
Entered by GREG LEIVA SCRIBE 01/25/20 0915 Acting as scribe for:BOBBY COY DO ED General - General Chief Complaint: Back Pain Stated Complaint: BACK PAIN Time Seen by Provider: 01/25/20 08:52 Mode of Arrival: Ambulatory Information source: Patient Notes: This 44-year-old female patient with a remote history of right-sided breast cancer s/p right mastectomy presents to the emergency department today with complaints of right sided low back pain that radiates down to her right knee. Patient also has a history of DDD. Patient is tearful and anxious and concerned that this could possibly be related to recurring malignancy. Patient states that the pain has been continuous for 1 week and she is unable to get comfortable. TRAVEL OUTSIDE OF THE [place] IN LAST 30 DAYS: No - Related Data Allergies/Adverse Reactions: acetaminophen [From Percocet] Allergy (Severe, Verified 12/11/18 07:21) RASH doxycycline [Doxycycline] Allergy (Severe, Verified 12/11/18 07:21) rash & vomiting oxycodone HCl [From Percocet] Allergy (Severe, Verified 12/11/18 07:21) RASH Past Medical History - General Information source: Patient - Social History Smoking Status: Never Smoker Cigarette use (# per day): No Frequency of alcohol use: None Drug Abuse: None Lives with: Family Family History: Reviewed & Not Pertinent Patient has suicidal ideation: No Patient has homicidal ideation: No - Past Medical History Cardiac Medical History: Reports: Hx Congestive Heart Failure Pulmonary Medical History: Reports: Hx Asthma - childhood, Hx Bronchitis, Hx Pneumonia Neurological Medical History: Reports: Hx Migraine Malignancy Medical History: Reports: Hx Breast Cancer - Right s/p mastectomy Musculoskeletal Medical History: Reports Other - DDD Past Surgical History: Reports: Hx Breast Surgery - Right-sided mastectomy, Hx Gynecologic Surgery, Hx Tubal Ligation - Immunizations Hx Diphtheria, Pertussis, Tetanus Vaccination: Yes Review of Systems - Review of Systems Constitutional: No symptoms reported EENT: No symptoms reported Cardiovascular: No symptoms reported Respiratory: No symptoms reported Gastrointestinal: No symptoms reported Genitourinary: No symptoms reported Female Genitourinary: No symptoms reported Musculoskeletal: See HPI, Back pain Skin: No symptoms reported Hematologic/Lymphatic: No symptoms reported Neurological/Psychological: No symptoms reported -: Yes All other systems reviewed and negative Physical Exam - Vital signs Vitals: Temp Pulse Resp BP Pulse Ox 98.3 F 73 16 146/85 H 100 01/25/20 08:12 01/25/20 08:12 01/25/20 08:12 01/25/20 08:12 01/25/20 08:12 - Notes Notes: Physical Exam: General: Alert, obese, tearful. HEENT: Normocephalic. Atraumatic. PERRL. Extraocular movements intact. Oropharynx clear. Neck: Supple. Non-tender. Respiratory: No respiratory distress. Clear and equal breath sounds bilaterally. Cardiovascular: Regular rate and rhythm. Abdominal: Obese. Non-tender. No distension. Normal Bowel Sounds. Back: Right sided paraspinal tenderness with palpation throughout the lumbar and thoracic spine. Right SI joint tenderness with palpation. Extremities: Moves all four extremities. Upper extremities: Normal inspection. Normal ROM. Lower extremities: Right hip tenderness with palpation. Neurological: Normal cognition. AAOx4. Normal speech. Psychological: Anxious. Skin: Warm. Dry. Normal color. Course - Re-evaluation Re-evalutation: 01/25/20 10:43 MDM 44 year old female with history and physical consistent with right sided sciatica and known ddd in lumbar spine. Nonsmoker. Discussed getting with primary care provider for pt and continued treatment/ advanced imaging should it become necessary. - Vital Signs Vital signs: Temp Pulse Resp BP Pulse Ox 98.7 F 73 18 146/85 H 100 01/25/20 10:05 01/25/20 08:12 01/25/20 10:05 01/25/20 08:12 01/25/20 08:12 Discharge - Discharge Clinical Impression: Acute sciatica Condition: Good Disposition: HOME, SELF-CARE Instructions: Low Back Pain ([facility]), Ice Packs ([facility]), Pain Medication Injection ([facility]), Warm Packs ([facility]), Family Physicians / Practices Additional Instructions: Rest, ice to back and alternate ice and heat. See your primary doctor in follow up. Please return here for increasing pain/ other concerns. Forms: Elevated Blood Pressure, Return to Work I personally performed the services described in the documentation, reviewed and edited the documentation which was dictated to the scribe in my presence, and it accurately records my words and actions.
== END 2020-01-25 11:24 | disposition home or self-care (01) ==
LOC: ER 08:07
DX: M54.31 Sciatica, right side (principal); I50.9 Heart failure, unspecified; Z85.3 Personal history of malignant neoplasm of breast; Z90.11 Acquired absence of right breast and nipple; Z88.6 Allergy status to analgesic agent; Z98.51 Tubal ligation status
CPT/HCPCS: 99283; 96372; 72110; J1885